=== PATIENT | male | born 1975 | race Caucasian/White ===

== ENCOUNTER 2023-10-02 17:59 | Emergency (ER) | payer OTHER, SELFPAY ==
--- NOTE | ~2023-10-02 | XR_ITS ---
XR forearm LT 2V Ordering provider: Edin Mayers APRN History: . left forearm 4 weeks ago . Comparison: None FINDINGS: BONES: Comminuted Fracture in the distal metaphysis of the left radius with no significant displaceme nt. extension to the joint is seen. JOINT SPACES: Normal. SOFT TISSUES: Normal. IMPRESSION: Fracture distal metaphysis of the left radius with no significant displacement. Reviewed, dictated and finalized at location A.
--- NOTE | ~2023-10-02 | XR_ITS ---
XR wrist LT min 3V Ordering provider: Edin Mayers APRN History: . wrist fx 4 weeks ago . Comparison: None. FINDINGS: BONES: Comminuted Fracture in the distal metaphysis of the left radius with no significant displaceme nt. extension to the joint is seen. JOINT SPACES: Well maintained. SOFT TISSUES: Normal. IMPRESSION: Comminuted Fracture in the distal metaphysis of the left radius with no significant displacement. ext ension to the joint is seen. Reviewed, dictated and finalized at location A. IMPRESSION: Comminuted Fracture in the distal metaphysis of the left radius with no signifi cant displacement. extension to the joint is seen.
[2023-10-02 18:23] VITALS: BP 146/96; PULSE 107; RESP 20; TEMP 36.3; O2SAT 100
--- NOTE | 2023-10-02 18:24 | ED.UPPEXIN ---
HPI - Extremity Injury (Upper) General Chief Complaint: Extremity Injury, Upper Stated Complaint: left arm pain Time Seen by Provider: 10/02/23 21:02 Focused HPI: 47-year-old male presents to the emergency room for evaluation of left arm pain. States 4 weeks ago large tree fell on his arm and struck his head. Patient admits to positive LOC at that time. Was seen at [place] [facility] at the time of injury, patient states x-rays showed multiple fractures in his forearm and wrist. Patient was placed in a sugar-tong and told to follow-up with orthopedics. Patient did not follow-up with Orthopedics, and was seen again at [place] [facility] 2 weeks later. Patient again was told it is to follow-up with orthopedics. States has not follow-up with orthopedics. Presents today with original OCL on his left arm, swelling and pain to his fingers distal to His injury. GENERAL: Well-appearing, well-nourished, and in no acute distress. HEAD: Normocephalic, atraumatic. CHEST: Clear to auscultation. No respiratory distress. HEART: Regular rate and rhythm. NEURO: Alert and oriented x3. Patient screened in triage and initial orders placed. Additional care and disposition to be based upon diagnostic testing and treatment. Related Data Allergies Allergy/AdvReac Type Severity Reaction Status Date / Time No Known Allergies Allergy Unverified 10/02/23 18:00 Course Vital Signs Vital signs: Vital Signs Temperature 36.3 C L 10/02/23 18:23 Pulse Rate 107 H 10/02/23 18:23 Respiratory Rate 20 10/02/23 18:23 Blood Pressure 146/96 H 10/02/23 18:23 Pulse Oximetry 100 10/02/23 18:23 Temperature 36.3 C L 10/02/23 18:23 Pulse Rate 85 10/02/23 21:25 Respiratory Rate 15 10/02/23 21:25 Blood Pressure 130/88 10/02/23 21:25 Pulse Oximetry 100 10/02/23 21:25 Discharge Plan Discharge Clinical Impression: Fracture of wrist Patient Disposition: Home, Self-Care Condition: Stable Instructions: Wrist Fracture in Adults (ED), How to Use a Sling (ED), Splint Care (ED) Additional Instructions: RETURN IF SYMPTOMS ARE WORSENING , CALL DR LAURA FOR APPOINTMENT, OR CALL YOUR ORTHOPEDIC AT [facility] TOMORROW, TAKE TYLENOL NEEDED FOR ACHES AND PAIN, CONTINUE HOME MEDICATIONS. Follow-up/Referrals: Kp Cummings MD [Primary Care Provider] -
[2023-10-02 21:25] VITALS: BP 130/88; PULSE 85; RESP 15; O2SAT 100
--- NOTE | 2023-10-02 21:40 | ED.UPPEXIN ---
HPI - Extremity Injury (Upper) General Chief Complaint: Extremity Injury, Upper Stated Complaint: left arm pain Time Seen by Provider: 10/02/23 21:02 Source: patient History of Present Illness HPI narrative: PATIENT IS TELLING ME THAT HE HAD A FALL OF A TREE 24 FT ON SEPTEMBER 01, WAS HOSPITALIZED AT ICU/[facility] FOR 16 HOURS, WAS TOLD THAT HE WILL RECEIVE A PHONE CALL FROM [facility] TO HAVE SURGERY AT THE LEFT WRIST IN 3 DAYS. PATIENT HAD SPLINT AND SLING AT THAT TIME. PATIENT IS TELLING ME THAT HE WAS NOT ABLE TO COMMUNICATE WITH [facility] BECAUSE HIS PHONE IS SCREWED UP. HE DENIES ANY FEVER, CHILLS OR NEW INJURY. THIS IS TELLING ME THAT HE IS ABLE TO MOVE HIS FINGERS WITHOUT ANY RESTRICTION, BUT STILL HAVING PAIN AND LEFT WRIST. Related Data Allergies Allergy/AdvReac Type Severity Reaction Status Date / Time No Known Allergies Allergy Unverified 10/02/23 18:00 Review of Systems Review of Systems: All systems reviewed & are unremarkable except as noted in HPI and below Exam Narrative: GENERAL APPEARANCE: WELL-DEVELOPED, WELL-NOURISHED SKIN: NORMAL COLOR HEAD: NORMOCEPHALIC, NONTRAUMATIC EYES: CLEAR CONJUNCTIVA ENT: OROPHARYNX NORMAL, EARS NORMAL, NOSE NORMAL NECK: SUPPLE, NONTENDER CHEST AND RESPIRATORY: AIRWAY PATENT, NO RESPIRATORY DISTRESS, NO ACCESSORY MUSCLE USE HEART: REGULAR RATE/RHYTHM ABDOMEN: SOFT, NONTENDER, NO ORGANOMEGALY, QUIET BOWEL SOUNDS VASCULAR: NORMAL PERIPHERAL PULSES, NORMAL CAPILLARY REFILL. MUSCULOSKELETAL: LEFT WRIST EXAM SHOWED SLIGHT SWELLING, NO DEFORMITY, LIMITED RANGE OF MOTION, POSITIVE TENDERNESS, PALPABLE RADIAL PULSE, GOOD SENSATION, GOOD ABDUCTION AND ADDUCTION OF THE FINGERS NEUROLOGIC: ALERT AND ORIENTED ?3, PEN AND PENCIL REPAIRER IS NORMAL TESTED, NO GROSS MOTOR DEFICIT Course Vital Signs Vital signs: Vital Signs Temperature 36.3 C L 10/02/23 18:23 Pulse Rate 107 H 10/02/23 18: Respiratory Rate 20 10/02/23 18:23 Blood Pressure 146/96 H 10/02/23 18: Pulse Oximetry 100 10/02/23 18:23 Temperature 36.3 C L 10/02/23 18:23 Pulse Rate 85 10/02/23 21:25 Respiratory Rate 15 10/02/23 21:25 Blood Pressure 130/88 10/02/23 21:25 Pulse Oximetry 100 10/02/23 21:25 MDM - Extremity Injury (Upper) MDM Narrative Medical decision making narrative: BASICALLY PATIENT CAME TO THE EMERGENCY ROOM TO GET HIS WRIST FIXED RIGHT AWAY. X-RAY OF THE LEFT WRIST SHOWED DISTAL RADIAL FRACTURE WITH SLIGHT DISPLACEMENT DOES NOT NEED ANY CLOSE REDUCTION AT THIS TIME. PATIENT'S SPLINT WAS REMOVED ON ARRIVAL TO OUR EMERGENCY ROOM BECAUSE PATIENT WAS COMPLAINING OF PAIN AND SWELLING OF HIS FOR ON. PHYSICAL EXAMINATION SHOWED NO NEUROVASCULAR ABNORMALITIES. WRIST SPLINT ORDERED, PATIENT TO FOLLOW UP WITH [facility] OR WITH OUR ORTHOPEDIC ON-CALL TODAY. Imaging Data Radiologist's impression: Impressions Forearm X-Ray 10/02/23 18:47 IMPRESSION: Fracture distal metaphysis of the left radius with no significant displacement. Wrist X-Ray 10/02/23 18:49 IMPRESSION: Comminuted Fracture in the distal metaphysis of the left radius with no significant displacement. extension to the joint is seen. Critical Care Time Critical Care Time Critical Care Time: No Discharge Plan Discharge Clinical Impression: Fracture of wrist Patient Disposition: Home, Self-Care Condition: Stable Instructions: Wrist Fracture in Adults (ED), How to Use a Sling (ED), Splint Care (ED) Additional Instructions: RETURN IF SYMPTOMS ARE WORSENING , CALL DR LAURA FOR APPOINTMENT, OR CALL YOUR ORTHOPEDIC AT [facility] TOMORROW, TAKE TYLENOL NEEDED FOR ACHES AND PA
== END 2023-10-02 22:50 | disposition home or self-care (01) ==
PROVIDERS: Emergency Provider Emergency Medicine; PCP Family Medicine
DX: S59.292A Other physeal fracture of lower end of radius, left arm, initial encounter for closed fracture (principal); W14.XXXA Fall from tree, initial encounter
CPT/HCPCS: 29125; 73090; 73110; 99284; A4565